=== PATIENT | male | born 1995 | race Caucasian/White ===

== ENCOUNTER → 2020-08-28 | Outpatient (REF) | LOC: LAB 16:42 | DX: Z02.1 Encounter for pre-employment examination (principal) ==

== ENCOUNTER → 2021-05-13 | Outpatient (CLI) | payer BC ==
[2021-05-13 17:48] LABS: BASO # 0.03 K/mm3 (0.02-0.10); EOS # 0.17 K/mm3 (0.04-0.40); EOS % 3.4 % (0.0-4.0); HEMATOCRIT 42.4 % (42.0-52.0); HEMOGLOBIN 14.6 g/dL (13.5-18.0); LYMPH# 2.02 K/mm3 (1.50-4.00); MEAN CELL VOLUME 81 fl (78-100); MEAN CORPUSCULAR HEMOGLOBIN 28 pg (27-31); MEAN CORPUSCULAR HGB CONC 34 g/dL (33-37); MEAN PLATELET VOLUME 10.7 fl (7.4-10.4); MONO # 0.45 K/mm3 (0.20-0.80); NEU # 2.22 K/mm3 (1.40-6.50); PLATELET COUNT 248 K/mm3 (130-400); RED BLOOD COUNT 5.23 M/mm3 (4.20-5.60); RED CELL DISTRIBUTION WIDTH 12.4 % (11.5-14.5); WHITE BLOOD COUNT 4.9 K/mm3 (4.8-10.8)
[2021-05-13 18:00] LABS: ALBUMIN 4.3 g/dL (3.5-5.0); POTASSIUM 3.9 mmol/L (3.5-5.1)
[2021-05-13 18:01] LABS: CALCIUM 9.5 mg/dL (8.3-10.5)
[2021-05-13 18:03] LABS: TOTAL PROTEIN 7.3 g/dL (6.4-8.3)
== END ==
LOC: LAB 17:18
PROVIDERS: Family Medicine
DX: Z00.00 Encounter for general adult medical examination without abnormal findings (principal); E78.5 Hyperlipidemia, unspecified; R51.9 Headache, unspecified; R58 Hemorrhage, not elsewhere classified

== ENCOUNTER → 2021-05-15 | Outpatient (CLI) | payer BC ==
[2021-05-19 13:55] LABS: FACTOR II -AMS 107 % (70-120)
== END ==
LOC: LAB 15:39
PROVIDERS: Family Medicine
DX: R04.0 Epistaxis (principal)

== ENCOUNTER → 2024-01-03 | Outpatient (CLI) | payer BC ==
[~2024-01-03] MED LIST: ALBUTEROL SULF6.7 GM IH
== END ==
LOC: RAD 11:37
DX: M54.50 Low back pain, unspecified (principal)